=== PATIENT | female | born 1980 | race Caucasian/White ===

== ENCOUNTER 2016-11-09 07:51 | Observation (INO) | payer MEDICAID ==
[2016-11-09 08:44] LABS: URINE MUCUS NONE SEEN (Up to 25%); URINE RBC NONE SEEN (0-5/hpf); URINE WBC NONE SEEN (0-4/hpf)
[2016-11-09 08:47] LABS: BASOPHIL# 0.1 X 10^3uL (0.0-0.1); BASOPHILS 1.5 % (0.0-2.0); EOSINOPHILS# 0.1 X 10^3uL (0.0-0.4); HEMATOCRIT 40.7 % (36.0-48.0); HEMOGLOBIN 14.3 g/dL (12.0-16.0); LYMPHOCYTES 14.9 % (20.0-40.0); LYMPHOCYTES# 1.2 X 10^3uL (0.8-3.8); MEAN CELL VOLUME 95.3 fL (80.0-100.0); MEAN CORPUS. HGB CONCENTRATION 35.1 g/dL (32.0-36.0); MEAN CORPUSCULAR HEMOGLOBIN 33.4 pg (29.0-35.0); MEAN PLATELET VOLUME 8.3 fL (7.4-10.4); MONOCYTES 3.2 % (2.0-10.0); MONOCYTES# 0.3 X 10^3uL (0.2-1.0); NEUTROPHILS 79.4 % (54.0-75.0); NEUTROPHILS# 6.5 X 10^3uL (2.6-6.7); PLATELET COUNT 230 X 10^3uL (130-440); RED BLOOD COUNT 4.27 X 10^6uL (4.20-6.10); RED CELL DISTRIBUTION WIDTH 12.4 % (11.5-14.5); WHITE BLOOD COUNT 8.2 X 10^3uL (3.9-10.7)
[2016-11-09 08:57] LABS: ALBUMIN 4.2 g/dL (3.5-5.0); ALKALINE PHOSPHATASE 102 U/L (38-126); ALT 39 U/L (9-52); AST 49 U/L (14-36); BILIRUBIN, DIRECT 0.3 mg/dL (0.0-0.4); BILIRUBIN, TOTAL 1.2 mg/dL (0.2-1.3); BLOOD UREA NITROGEN 11 mg/dL (7-17); CALCIUM 8.3 mg/dL (8.4-10.2); CHLORIDE 106 mmol/L (98-107); EST GLOMERULAR FILTRATION RATE > 60 mL/min; GLUCOSE 100 mg/dL (70-100); POTASSIUM 4.3 mmol/L (3.5-5.1); SODIUM 137 mmol/L (137-145); TOTAL PROTEIN 7.5 g/dL (6.3-8.2)
[2016-11-09 09:00] LABS: URINE APPEARANCE CLEAR; URINE BILIRUBIN 0.5 mg/100ml (1+) (NEGATIVE); URINE BLOOD NEGATIVE (NEGATIVE); URINE COLOR YELLOW; URINE GLUCOSE NORMAL (NEGATIVE); URINE KETONE NEGATIVE (NEGATIVE); URINE LEUKOCYTE ESTERASE NEGATIVE (NEGATIVE); URINE NITRITE NEGATIVE (NEGATIVE); URINE PH 5.5 (5-7); URINE PROTEIN 30mg/dL (1+) (NEG - TRACE); URINE SPECIFIC GRAVITY 1.025 (0.001-1.035); URINE UROBILINOGEN 0.2mg/dL (Normal) (NEG-1mg/dL)
[2016-11-09 09:01] LABS: URINE BACTERIA NONE SEEN (<10/hpf)
[2016-11-09] MEDS ORDERED: ONDANSETRON HCL 4 MG/2 ML VIAL ONE (09:01)
[2016-11-09] MEDS ORDERED: KETOROLAC TROMETHAMINE 30 MG/ML VIAL ONE (09:01)
[2016-11-09 09:07] LABS: LIPASE 2586 U/L (23-300)
[2016-11-09] MEDS ORDERED: HOME MEDICATION LIST NEEDED 1 EA EACH MC ONE (09:39)
[2016-11-09] MEDS ORDERED: ONDANSETRON HCL 4 MG/2 ML VIAL IV PRN (09:41)
--- NOTE | 2016-11-09 10:14 | ER NURSING DOCUMENTATION ---
Nurse's Notes [facility] Name:Gricelda Garcia Age:35 yrs Sex:Female :1980 Arrival Date:11/09/2016 Time:07:51 Bed3 Private MD:[facility] Diagnosis:Pancreatitis, Acute;Dehydration Presentation: 11/09 07:56 Transition of care: patient was not received from another setting of care. tg 07:56 Acuity: MUNA 3 tg 07:56 Method Of Arrival: Private Vehicle tg 07:58 Presenting complaint: Patient states: Pain in LUQ, began yesterday, sharp. Nauseous, tg denies fever chills, urinary symptoms. Triage Assessment: 07:30 General: Behavior is cooperative. Pain: Complains of pain in left upper quadrant. tg Neuro: Level of Consciousness is awake, alert. Cardiovascular: Capillary refill < 3 seconds. Respiratory: Respiratory effort is even, unlabored. GI: Reports upper abdominal pain, normal bowel habits. :. Derm: Skin is pink, warm & dry. 09:52 General: Appears uncomfortable. tg Historical: - Allergies: No known drug Allergies; - Home Meds: 1. None - PMHx: None; - PSHx: ; - Tetanus: < 10 years. - Ebola Screening: : Patient negative for fever greater than or equal to 101.5 degrees Fahrenheit, and additional compatible Ebola Virus Disease symptoms. Patient denies exposure to infectious person. Patient denies travel to an Ebola-affected area in the 21 days before illness onset. No symptoms or risks identified at this time. . - Immunization history: Flu Vaccine unknown. - Social history: Smoking status: Patient uses tobacco products, current every day smoker. Screenin:30 Infectious Disease Risk Unable to Obtain. Nutritional screening: No deficits noted. tg 11:25 Abuse screen: Denies threats or abuse. Denies injuries from another. tg Vital Signs: 08:00 BP 155 / 98; Pulse 98; Resp 18; Temp 97.9(O); Pulse Ox 95% on R/A; Weight 77.11 kg (R); tg Height 5 ft. 2 in. (157.48 cm) (R); Pain 7/10; 09:30 BP 119 / 85 (auto/); tg 09:34 Pulse Ox 94% ; tg 10:00 Pain 2/10; tg 10:04 BP 129 / 89; Pulse 73; Pulse Ox 92% on R/A; tg 08:00 Body Mass Index 31.09 (77.11 kg, 157.48 cm) tg ED Course: 07:30 Valuables Remains with patient. tg 07:53 Patient arrived in ED. arc 07:53 [facility] is Private Physician. arc 07:56 Jason Bellamy RN is Primary Nurse. tg 07:56 Triage completed. tg 08:08 Den Riojas MD is Attending Physician. cd 08:35 Inserted peripheral IV: 22 gauge in right antecubital area and blood collected. Missed arc attempts: 20 gauge X 1 in left antecubital area. 09:31 Alonso Yarbrough MD is Admitting Physician. cd Administered Medications: 08:45 Drug: NS 0.9% 1000 ml; Route: IV; Rate: bolus; Site: right antecubital; tg 10:14 Follow up: IV Status: Completed infusion; IV Intake: 1000ml tg 08:58 Drug: Zofran 4 mg; Route: IVP; Infused Over: 2 mins; Site: right antecubital; tg 09:45 Follow up: Response: No adverse reaction tg 09:00 Drug: Toradol 30 mg; Route: IVP; Site: right antecubital; tg 09:45 Follow up: Response: No adverse reaction tg 09:02 Drug: Dilaudid 0.25 mg; Route: IVP; Site: right antecubital; tg 09:44 Follow up: Response: Pain is decreased tg 09:44 Drug: Dilaudid 0.5 mg; Route: IVP; Site: right antecubital; tg 10:00 Follow up: Pain 2/10 Adult; Response: Pain is decreased tg Intake: 10:14 IV: 1000ml; Total: 1000ml. tg Outcome: 09:32 Decision to Admit by Provider. cd 10:03 Admitted to Med/surg accompanied by nurse, family with patient, via stretcher. tg 10:03 Condition: improved 10:03 Report given to CAROLE Case 10:03 Discharge Assessment: Patient awake and alert. 10:03 Instructed on need to admit 10:14 Patient left the ED. tg Signatures: Jason Bellamy RN RN tg Den Riojas MD MD cd Inderjit, Eulalia, Reg Reg arc
--- NOTE | 2016-11-09 10:14 | ER PHYSICIAN DOCUMENTATION ---
Physician Documentation [facility] Name:Gricelda Garcia Age:35 yrs Sex:Female :1980 Arrival Date:11/09/2016 Time:07:51 Bed3 Private MD:[facility] ED PhysicianDen Riojas Disposition: 11/09 10:00 Chart complete. cd Disposition: 11/09/16 09:32 Admit ordered for Alonso Yarbrough. Preliminary diagnosis are Pancreatitis, Acute, Dehydration. - Bed requested for Medical/Surgical. - Condition is Fair. - Problem is new. - Symptoms are unchanged. 23 HR OBS Yes HPI: 08:05 This 35 yrs old Female presents to ER via Private Vehicle with complaints of cd Abdominal Pain. 08:05 The patient presents with abdominal pain in the left upper quadrant. Onset: The cd symptoms/episode began/occurred acutely, yesterday. The symptoms do not radiate. Associated signs and symptoms: Pertinent positives: anorexia, nausea, vomiting, Pertinent negatives: blood in stools, diarrhea, fever, hematuria, shortness of breath, vomiting blood. The symptoms are described as crampy, sharp. Modifying factors: The symptoms are alleviated by nothing, the symptoms are aggravated by touching the area. Severity of pain: At its worst the pain was moderate in the emergency department the pain is unchanged. The patient has not experienced similar symptoms in the past. The patient has not recently seen a physician. 09:32 Risk factors for ectopic : Not applicable:. cd Historical: - Allergies: No known drug Allergies; - Home Meds: 1. None - PMHx: None; - PSHx: ; - Tetanus: < 10 years. - Ebola Screening: : Patient negative for fever greater than or equal to 101.5 degrees Fahrenheit, and additional compatible Ebola Virus Disease symptoms. Patient denies exposure to infectious person. Patient denies travel to an Ebola-affected area in the 21 days before illness onset. No symptoms or risks identified at this time. . - Immunization history: Flu Vaccine unknown. - Social history: Smoking status: Patient uses tobacco products, current every day smoker. ROS: 08:58 ENT: Negative for injury, pain, epistaxis and discharge. cd Cardiovascular: Negative for chest pain, palpitations, edema and pleuritic pain. Respiratory: Negative for shortness of breath, dyspnea on exertion, cough, sputum production, wheezing, hemoptysis and pleuritic chest pain. Back: Negative for injury, pain or muscle spasms. MS/Extremity: Negative for injury, deformity, edema, calf tenderness, pain or coldness. Skin: Negative for injury, rash, itching and discoloration. 08:58 Neuro: Negative for headache, weakness, numbness, tingling, and seizure. cd 08:58 Constitutional: Positive for poor PO intake, Negative for chills, fever. 08:58 Abdomen/GI: Positive for abdominal pain, nausea, vomiting, anorexia, Negative for diarrhea, constipation, abdominal distension, hematemesis, black/tarry stool, rectal bleeding. 08:58 : Negative for urinary symptoms, urinary frequency, pelvic pain, flank pain, burning with urination, difficulty urinating, foul smelling urine, vaginal bleeding, vaginal discharge. 08:58 All other systems are negative. Exam: Eyes: Pupils equal round and reactive to light, extra-ocular motions intact. Lids and lashes normal. Conjunctiva and sclera are non-icteric and not injected. Cornea within normal limits. Periorbital areas with no swelling, redness, or edema. ENT: Nares patent. No nasal discharge, no septal abnormalities noted. Tympanic membranes are normal and external auditory canals are clear. Oropharynx with no redness, swelling, or masses, exudates, or evidence of obstruction, uvula midline. Mucous membranes moist. Neck: Trachea midline, no thyromegaly or masses palpated, and no cervical lymphadenopathy. Supple, full range of motion without nuchal rigidity, or vertebral point tenderness. No Meningismus. 08:58 Back: No spinal tenderness. No costovertebral tenderness. Full range of motion. cd Skin: Warm, dry with normal turgor. Normal color with no rashes, no lesions, and no evidence of cellulitis. MS/ Extremity: Pulses equal, no cyanosis. Neurovascular intact. Full, normal range of motion. 08:58 Neuro: Awake and alert, GCS 15, oriented to person, place, time, and situation. Cranial nerves II-XII grossly intact. Motor strength 5/5 in all extremities. Sensory grossly intact. Cerebellar exam normal. Normal gait. 08:58 Constitutional: The patient appears alert, awake, non-diaphoretic, non-toxic, well developed, well nourished, anxious, obese, in obvious distress, moderately distressed. 08:58 Cardiovascular: Rate: normal, Rhythm: regular, Pulses: no pulse deficits are appreciated, Heart sounds: normal. 08:58 Respiratory: the patient does not display signs of respiratory distress, Respirations: normal, no acute changes, Breath sounds: are normal, clear throughout. 08:58 Abdomen/GI: Inspection: abdomen appears normal, Bowel sounds: normal, active, Palpation: moderate abdominal tenderness, in the left upper quadrant, mass, is not appreciated, rebound tenderness, is not appreciated, voluntary guarding, is not appreciated, involuntary guarding, is not appreciated, no appreciated organomegaly, Indicators: McBurney's point is not tender, Diaz's sign is negative. 08:58 : CVA tenderness, is absent, Rectal exam: is not applicable. Vital Signs: 08:00 BP 155 / 98; Pulse 98; Resp 18; Temp 97.9(O); Pulse Ox 95% on R/A; Weight 77.11 kg (R); tg Height 5 ft. 2 in. (157.48 cm) (R); Pain 7/10; 09:30 BP 119 / 85 (auto/); tg 09:34 Pulse Ox 94% ; tg 10:00 Pain 2/10; tg 10:04 BP 129 / 89; Pulse 73; Pulse Ox 92% on R/A; tg 08:00 Body Mass Index 31.09 (77.11 kg, 157.48 cm) tg MDM: 08:08 Patient medically screened. cd 08:10 Differential diagnosis: bowel obstruction, cholecystitis, Cholelithiasis, cd diverticulitis, Ectopic , Irritable bowel syndrome, Mesenteric ischemia or infarction, pancreatitis, Pyelonephritis, Ureterolithiasis, urinary tract infection, Dehydration. 08:15 Data reviewed: vital signs, nurses notes, old medical records, and as a result, I will cd continue to observe the patient, administer IV fluids, NS bolus, NS maintenence, prescribe pain medication, Dilaudid, Toradol, and Zofran for Nausea. Data interpreted: Pulse oximetry: on room air is 95 %. Interpretation: normal. 09:20 Response to treatment: the patient's symptoms have mildly improved after treatment, and cd as a result, I will admit patient. Physician consultation: Alonso Yarbrough MD was called at 09:25, was contacted at 09:26, regarding admission, to the floor, consult, patient's condition, need to evaluate the patient as soon as possible, and will see patient in inpatient room, shortly, later today. Admission orders: after a detailed discussion of the patient's condition and case, the admit orders are written by me. 09:30 Counseling: I had a detailed discussion with the patient and/or guardian regarding: the cd historical points, exam findings, and any diagnostic results supporting the discharge/admit diagnosis, lab results, the need for further work-up and treatment in the hospital, risk of leaving the Emergency Department. 11/09 08:57 Order name: CBC AUTO DIF, MDIF/RMOR IF IND; Complete Time: 09:21 [facility] 11/09 09:01 Interpretation: Normal Except: NEUTROPHILS 79.4; Mild Left Shift. 11/09 09:00 Order name: BASIC METABOLIC PANEL; Complete Time: 09:21 [facility] 11/09 09:01 Interpretation: Normal Except: CARBON DIOXIDE 20; Dehydration. 11/09 09:00 Order name: HEPATIC PANEL; Complete Time: 09:21 [facility] 11/09 09:02 Interpretation: Normal Except: AST 49. 11/09 09:01 Order name: UA W/ MICRO -CULTURE IF IND; Complete Time: 09:21 [facility] 11/09 09:02 Interpretation: Normal Except: URINE SPECIFIC GRAVITY 1.025; URINE BILIRUBIN 0.5 cd mg/100ml (1+); Dehydration. 11/09 09:08 Order name: LIPASE; Complete Time: 09:21 [facility] 11/09 09:20 Interpretation: Abnormal: LIPASE 2586; Acute Pancreatitis. 11/09 09:11 Order name: HCG, SERUM; Complete Time: 09:21 [facility] 11/09 09:21 Interpretation: Normal. 11/10 06:34 Order name: CBC AUTO DIF, MDIF/RMOR IF IND [facility] 11/10 07:25 Order name: BASIC METABOLIC PANEL [facility] 11/10 07:25 Order name: HEPATIC PANEL [facility] 11/10 07:25 Order name: LIPASE [facility] 11/09 08:15 Order name: NPO; Complete Time: 08:44 cd Dispensed Medications: 08:45 Drug: NS 0.9% 1000 ml; Route: IV; Rate: bolus; Site: right antecubital; tg 10:14 Follow up: IV Status: Completed infusion; IV Intake: 1000ml tg 08:58 Drug: Zofran 4 mg; Route: IVP; Infused Over: 2 mins; Site: right antecubital; tg 09:45 Follow up: Response: No adverse reaction tg 09:00 Drug: Toradol 30 mg; Route: IVP; Site: right antecubital; tg 09:45 Follow up: Response: No adverse reaction tg 09:02 Drug: Dilaudid 0.25 mg; Route: IVP; Site: right antecubital; tg 09:44 Follow up: Response: Pain is decreased tg 09:44 Drug: Dilaudid 0.5 mg; Route: IVP; Site: right antecubital; tg 10:00 Follow up: Pain 07/11 Adult; Response: Pain is decreased tg Signatures: Jason Bellamy, RN RN tg Den Riojas MD MD cd
[2016-11-09] MEDS ORDERED: NICOTINE 21 MG PATCH TRANSDERM SCH (12:00)
--- NOTE | 2016-11-09 20:46 | HISTORY & PHYSICAL ---
DATE OF ADMISSION: 11/09/16 ATTENDING PHYSICIAN: Alonso Yarbrough MD CHIEF COMPLAINT: Left upper quadrant abdominal pain. HISTORY OF PRESENT ILLNESS: Patient is a 35-year-old female who presents with a 1-day history of left upper quadrant abdominal pain, non-radiating, associated with nausea. No fevers, chills, vomiting, diarrhea, constipation, melena and hematochezia, dysuria or vaginal discharge. No recent URI symptoms. Normal bowel movements. On further questioning, she acknowledges that she may have had a little bit too much wine lately. ALLERGIES: None. MEDICATIONS: None. PAST MEDICAL HISTORY: Caesarean section. SOCIAL HISTORY: With significant other. 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 Smokes 1 pack per day and 1 encouraged smoking cessation. Has several glasses of wine per day , probably in the order of 3-4 drinks per day. FAMILY HISTORY: Negative with no particular health problems with parents, grandparents or siblings. REVIEW OF SYSTEMS: No heart, lung, kidney, liver, diabetes, seizures, peptic ulcer disease, hypertension, hyperlipidemia, skin, allergy or bleeding disorders. No nocturia. No previous history of pancreatitis. PREVENTATIVE HEALTH: No flu shots which I recommended. PHYSICAL EXAMINATION VITAL SIGNS: Blood pressure 155/98, pulse 78, respiratory rate 18, temperature 97.9. Room air pulse oxygen 95%. By the time patient was admitted, blood pressure was down to 129/89. GENERAL: Well-developed, well-nourished overweight female, NAD, alert and oriented x3. HEENT: EOMI. PERRLA. Normal conjunctivae. TMs normal. No coryza. Pharynx not injected. Midline structures. NECK: No lymphadenopathy. No thyromegaly. No carotid bruits. Neck supple. CHEST: Clear. No rales, rhonchi or wheezes. Good breath sounds and symmetry throughout. COR: RRR without murmurs, gallops, rubs or clicks. No jugular venous distention. No ectopy. ABDOMEN: Soft, mild to moderate left upper quadrant abdominal tenderness on deep palpation with no guarding. No rebound tenderness. No hepatosplenomegaly. No masses. No bruits. No inguinal nodes. Bowel sounds present. No epigastric or right upper quadrant abdominal tenderness. LOWER EXTREMITIES: Cranial nerves 2-12 intact. Motor 5/5. Nonfocal. LABORATORY DATA: White blood cell count 8.2, hemoglobin and hematocrit 14.3/40.7 , platelets 330,000. Sodium 137, potassium 4.3, chloride 106, CO2 20, BUN 11, creatinine 0.7. Glucose 100. Calcium 8.3, total bilirubin 1.2 with direct bilirubin 0.3. AST 49, ALT 39, alkaline phosphatase 102. Total protein 7.5, albumin 4.2. Serum test negative. Lipase 2,586 (normal less than 300) . ASSESSMENT: Acute pancreatitis, most likely due to alcohol consumption. ER physician performed an abdominal ultrasound which revealed no evidence of gallstones or dilated duct. PLAN 1. IV hydration. 2. NPO. 3. Dilaudid PRN pain. 4. [facility]
[2016-11-09] MEDS: NORMAL SALINE 1,000 ML IV SCH (22:21)
[2016-11-10 03:32] VITALS: RESP 20
[2016-11-10] MEDS: NORMAL SALINE 1,000 ML IV SCH (04:52)
[2016-11-10 06:31] LABS: BASOPHILS 0.6 % (0.0-2.0); EOSINOPHILS 3.1 % (0.0-6.0); EOSINOPHILS# 0.2 X 10^3uL (0.0-0.4); HEMATOCRIT 36.5 % (36.0-48.0); HEMOGLOBIN 12.6 g/dL (12.0-16.0); LYMPHOCYTES 22.7 % (20.0-40.0); LYMPHOCYTES# 1.3 X 10^3uL (0.8-3.8); MEAN CELL VOLUME 96.2 fL (80.0-100.0); MEAN CORPUS. HGB CONCENTRATION 34.5 g/dL (32.0-36.0); MEAN CORPUSCULAR HEMOGLOBIN 33.2 pg (29.0-35.0); MEAN PLATELET VOLUME 8.4 fL (7.4-10.4); MONOCYTES 4.8 % (2.0-10.0); MONOCYTES# 0.3 X 10^3uL (0.2-1.0); NEUTROPHILS 68.8 % (54.0-75.0); NEUTROPHILS# 3.8 X 10^3uL (2.6-6.7); PLATELET COUNT 190 X 10^3uL (130-440); RED CELL DISTRIBUTION WIDTH 12.9 % (11.5-14.5); WHITE BLOOD COUNT 5.6 X 10^3uL (3.9-10.7)
[2016-11-10 06:51] VITALS: BP 109/55; PULSE 80; TEMP 98.6; O2SAT 96
[2016-11-10 07:00] LABS: ALBUMIN 3.3 g/dL (3.5-5.0); ALKALINE PHOSPHATASE 80 U/L (38-126); ALT 42 U/L (9-52); AST 24 U/L (14-36); BILIRUBIN, TOTAL 0.7 mg/dL (0.2-1.3); BLOOD UREA NITROGEN 8 mg/dL (7-17); CHLORIDE 110 mmol/L (98-107); EST GLOMERULAR FILTRATION RATE > 60 mL/min; GLUCOSE 85 mg/dL (70-100); POTASSIUM 3.2 mmol/L (3.5-5.1); SODIUM 141 mmol/L (137-145); TOTAL PROTEIN 6.1 g/dL (6.3-8.2)
[2016-11-10 07:24] LABS: CALCIUM 7.3 mg/dL (8.4-10.2)
[2016-11-10 07:25] LABS: LIPASE > 4000 U/L (23-300)
--- NOTE | 2016-11-10 08:00 | PROGRESS NOTE: IM SOAP ---
IM: PN Subjective Gastrointestinal: no abdominal pain, no nausea, no vomiting IM: PN Objective Exam - I&O/Vital Signs I&O: Intake & Output 11/09/16 11/10/16 11/10/16 21:59 05:59 13:59 Intake Total 900 1950 Output Total 500 Balance 400 1950 Weight 90.5 kg Intake: IV 900 1950 Right Antecubital 900 1950 Oral 0 Output: Urine 500 Stool 0 Other: Urine Appearance Clear Urine Color Yellow Voiding Method Toilet Vital Signs: Last Vital Signs Temp 37.0 C 11/10/16 06:50 Pulse 80 11/10/16 06:50 Resp 20 11/10/16 06:50 BP 109/55 11/10/16 06:50 Pulse Ox 96 11/10/16 06:50 Oxygen Flow Rate 1 Oxygen Delivery Method Nasal Cannula - Respiratory Respiratory exam: Present: clear - Cardiovascular Cardiovascular exam: Present: RRR. Absent: systolic murmur - GI/Abdominal GI/Abdominal exam: Present: soft, tenderness Additional comments: Mild to mod LUQ abd tenderness on deep palpation with guarding. No rebound - Extremities Exam Extremities exam: Absent: edema - Lab Labs: Laboratory Last Values WBC 5.6 X 10^3uL (3.9-10.7) 11/10/16 05:15 RBC 3.80 X 10^6uL (4.20-6.10) L 11/10/16 05:15 Hgb 12.6 g/dL (12.0-16.0) 11/10/16 05:15 Hct 36.5 % (36.0-48.0) 11/10/16 05:15 MCV 96.2 fL (80.0-100.0) 11/10/16 05:15 MCH 33.2 pg (29.0-35.0) 11/10/16 05:15 MCHC 34.5 g/dL (32.0-36.0) 11/10/16 05:15 RDW 12.9 % (11.5-14.5) 11/10/16 05:15 Plt Count 190 X 10^3uL (130-440) 11/10/16 05:15 MPV 8.4 fL (7.4-10.4) 11/10/16 05:15 Neutrophils % 68.8 % (54.0-75.0) 11/10/16 05:15 Lymphocytes % 22.7 % (20.0-40.0) 11/10/16 05:15 Eosinophils % 3.1 % (0.0-6.0) 11/10/16 05:15 Basophils % 0.6 % (0.0-2.0) 11/10/16 05:15 Neutrophils # 3.8 X 10^3uL (2.6-6.7) 11/10/16 05:15 Lymphocytes # 1.3 X 10^3uL (0.8-3.8) 11/10/16 05:15 Monocytes 4.8 % (2.0-10.0) 11/10/16 05:15 Monocytes # 0.3 X 10^3uL (0.2-1.0) 11/10/16 05:15 Eosinophils # 0.2 X 10^3uL (0.0-0.4) 11/10/16 05:15 Basophils # 0.0 X 10^3uL (0.0-0.1) 11/10/16 05:15 Sodium 141 mmol/L (137-145) 11/10/16 05:15 Potassium 3.2 mmol/L (3.5-5.1) L D 11/10/16 05:15 Chloride 110 mmol/L (98-107) H 11/10/16 05:15 Carbon Dioxide 22 mmol/L (22-30) 11/10/16 05:15 BUN 8 mg/dL (7-17) 11/10/16 05:15 Creatinine 0.7 mg/dL (0.5-1.0) 11/10/16 05:15 GFR Calculation > 60 mL/min 11/10/16 05:15 Glucose 85 mg/dL (70-100) 11/10/16 05:15 Calcium 7.3 mg/dL (8.4-10.2) L* 11/10/16 05:15 Total Bilirubin 0.7 mg/dL (0.2-1.3) 11/10/16 05:15 Direct Bilirubin 0.0 mg/dL (0.0-0.4) 11/10/16 05:15 AST 24 U/L (14-36) 11/10/16 05:15 ALT 42 U/L (9-52) 11/10/16 05:15 Alkaline Phosphatase 80 U/L (38-126) 11/10/16 05:15 Total Protein 6.1 g/dL (6.3-8.2) L 11/10/16 05:15 Albumin 3.3 g/dL (3.5-5.0) L D 11/10/16 05:15 Lipase > 4000 U/L (23-300) H 11/10/16 05:15 Serum , Qual Negative 11/09/16 08:25 Urine Color Yellow 11/09/16 08:25 Urine Appearance Clear 11/09/16 08:25 Urine pH 5.5 (5-7) 11/09/16 08:25 Ur Specific [place] 1.025 (0.001-1.035) 11/09/16 08:25 Urine Protein 30mg/dl (1+) (NEG - TRACE) A 11/09/16 08:25 Urine Ketones Negative (NEGATIVE) 11/09/16 08:25 Urine Blood Negative (NEGATIVE) 11/09/16 08:25 Urine Nitrate Negative (NEGATIVE) 11/09/16 08:25 Urine Bilirubin 0.5 mg/100ml (1+) (NEGATIVE) A 11/09/16 08:25 Urine Urobilinogen 0.2mg/dl (normal) (NEG-1mg/dL) 11/09/16 08:25 Ur Leukocyte Esterase Negative (NEGATIVE) 11/09/16 08:25 Urine RBC None seen (0-5/hpf) 11/09/16 08:25 Urine WBC None seen (0-4/hpf) 11/09/16 08:25 Ur Squamous Epith Cells 5-10/hpf (<= 15/hpf) 11/09/16 08:25 Urine Bacteria None seen (<10/hpf) 11/09/16 08:25 Urine Mucus None seen (Up to 25%) 11/09/16 08:25 Urine Glucose Normal (NEGATIVE) 11/09/16 08:25 Assessment and Plan - Date of Encounter Date of Encounter: 11/10/16 (1) Acute pancreatitis Status: Acute Assessment and plan: Most likely alcohol induced, but diff dx includes gall stones, viral, idiopathic , etc. Abd ultrasound Abd CT with contrast Surgical consult follow labs Current Visit: Yes - Time Spent With Patient Total time spent with greater than 50% in coordination of care (as documented) at patient's floor/unit and/or counseling patient: Quality Questions - VTE Prophylaxis Assessment VTE Present on Admission?: No Patient at risk for venous thromboembolism?: No VTE Risk Level: Very Low Risk Pharmaceutical VTE prophylaxis contraindication reason: not indicated Mechanical VTE prophylaxis contraindication reason: not indicated
--- NOTE | 2016-11-11 03:04 | DISCHARGE SUMMARY ---
DATE OF ADMISSION: 11/09/16 DATE OF DISCHARGE AGAINST MEDICAL ADVICE: 11/10/16 DIAGNOSIS: Acute pancreatitis, most likely due to alcohol consumption. HISTORY OF PRESENT ILLNESS: This is a 34-year-old female who presented with a 1 -day history of left upper quadrant abdominal pain, nonradiating, associated with nausea. No fever, chills, vomiting, diarrhea, constipation, melena, hematochezia, dysuria, vaginal discharge, etc. No recent URI symptoms. Normal bowel movements. She acknowledged that she may have had a little bit too much wine lately. Please see previously dictated history and physical for further details. HOSPITAL COURSE: The patient was admitted with acute pancreatitis and elevated lipase of 2586. Liver function tests were unremarkable. The patient was placed n.p.o. and hydrated with intravenous fluids. The following day, abdominal pain lessened, however, her lipase increased to greater than 4000. I was concerned that the patients pancreatitis was worsening and ordered an abdominal ultrasound, abdominal CT scan and surgical consultation. However, the patient abruptly decided to leave against medical advice. Nursing staff were unable to convince the patient to stay. Yesterday, I informed the patient and her partner of the risks of acute pancreatitis including chronic pancreatitis, pseudocyst, autodigestion of other organs, , other serious sequelae. In particular emphasized the importance of sobriety. The patient and signigicant other were fully informed of the usual management for her situation, including IV hydration to dilute out digestive enzymes and n.p.o. status and tincture of time. The patient signed paperwork to leave against medical advice. She is aware she can return to the ER if she begins to worsen. She was advised to stay away from alcohol. She was advised to remain N.P.O. and consider clear fluids once all abdominal discomfort had resolved. She was advised to [facility] up [facility]. [facility]
== END 2016-11-10 08:35 | disposition home or self-care (01) ==
LOC: ER 07:51 → UNDOADMOB 10:07 → IN 10:07
PROVIDERS: ADMIT Family Medicine; ATTEND Family Medicine
DX: K85.20 Alcohol induced acute pancreatitis without necrosis or infection (principal); E86.0 Dehydration; F10.20 Alcohol dependence, uncomplicated; Z72.0 Tobacco use
CPT/HCPCS: 36415; 80048; 80076; 81001; 83690; 84703; 85025; 96361; 96374; 96375; 96376; 99285; G0378; J1170; J1885; J2405; J7030; S4990